=== PATIENT | male | born 1955 | race Caucasian/White ===

== ENCOUNTER 2020-01-31 13:15 | Outpatient (CLI) | payer OTHER, SELFPAY ==
--- NOTE | ~2020-01-31 | US_ITS ---
US venous doppler LE RT DATE: 01/31/2020 13:59 INDICATION: Calf bruising TECHNIQUE: Real-time and color flow imaging and Doppler analysis of the veins of the lower extremitie s COMPARISON: None FINDINGS: The greater saphenous vein is patent. There is spontaneous and phasic flow and normal augme ntation and color flow signal and normal compression of the deep veins of the left lower extremity. IMPRESSION: Negative examination; no evidence of deep venous thrombosis Reviewed, dictated and finalized at [facility]. Reviewed, dictated and finalized at [facility].
== END 2020-01-31 13:16 | disposition home or self-care (01) ==
LOC: ANHIMG 13:21
PROVIDERS: PCP Family Medicine; Visit Provider Orthopaedic Surgery
DX: M79.609 Pain in unspecified limb (principal)
CPT/HCPCS: 93971

== ENCOUNTER → 2020-10-23 14:10 | Outpatient (CLI) | payer OTHER, SELFPAY ==
--- NOTE | ~2020-10-23 | MR_ITS ---
EXAMINATION: MR lumbar spine wo/w con DATE: 10/23/2020 15:05 INDICATION: Lumbar radiculopathy TECHNIQUE: Magnetic resonance imaging (MRI) of the lumbar spine was performed without and with 15 mL Multihance intravenous contrast. Sequences included sagittal T2-weighted FSE, sagittal T2-weighted FS FSE, and sagittal and axial T1-weighted FSE. Postcontrast sequences included axial T2-weighted FSE, sagittal T1-weighted FSE, and axial and sagittal T1-weighted FS FSE. COMPARISON: None FINDINGS: 3 mm retrolisthesis L2 on L3 and L3 on L4, 2-3 mm anterolisthesis L4 on L5 and 4-5 mm retrolisthesis L5 on S1. Mild fibrovascular degenerative endplate changes along a few of the endplates. Otherwise no rmal marrow signal with no fracture or pathologic marrow replacing process. Moderate disc height los s at T10-T11 and T11-T12, mild disc height loss at L2-L3. Moderate disc height loss at L2-L3 and L4-L 5 and severe disc height loss at L5-S1. There are annular fissures at T11-T12 and at L2-L3 through L5 -S1. The conus medullaris terminates at L1. There is normal signal in the caudal spinal cord. No abno rmally enhancing lesions identified. T2 hyperintense nonenhancing bilateral renal cysts the largest p artially visualized on the left measuring at least 5.4 cm. There appear to be foci of susceptibility artifact along both sides of the L4 and L5 spinous processes with some scarring in the paravertebral soft tissues suggesting prior surgery. Correlate with surgical history. The following disc levels are specifically discussed: T12-L1: The disc does not extend beyond the endplate margin. There is no facet joint osteoarthritis. There is no neural foraminal stenosis. There is no central canal stenosis. L1-L2: The disc does not extend beyond the endplate margin. There is mild bilateral facet joint osteo arthritis. There is normal left neural foraminal stenosis. There is no central canal stenosis. L2-L3: Disc is bulging with annular fissure and central disc extrusion with disc material extending 1 .7 cm caudal to the level of the superior endplate of L3 and in maximal transaxial dimensions measuri ng 12 mm medial collateral and 6 mm AP. There is mild hypertrophy of the ligamentum flavum. There is mild bilateral facet joint osteoarthritis. There is moderate bilateral neural foraminal stenosis. The re is moderate to severe central canal stenosis with very small amount of CSF signal surrounding the centrally clustered nerve roots. L3-L4: Disc is bulging with annular fissure. There is hypertrophy of the ligamentum flavum. There is moderate bilateral facet joint osteoarthritis. There is moderate bilateral neural foraminal stenosis. There is moderate central canal stenosis. L4-L5: Disc is bulging with superimposed annular fissure and central disc extrusion which extends 5 m m cephalad to the level of the inferior endplate of L4. There is hypertrophy of the ligamentum flavum . There is severe bilateral facet joint osteoarthritis. There is moderate bilateral neural foraminal stenosis. There is severe central canal stenosis with no CSF signal surrounding the centrally cluster ed nerve roots which demonstrated taut appearance cephalad to the stenosis and a relatively lax appea coleltte caudal to the stenosis. L5-S1: Disc is mildly bulging with annular fissure and small left paracentral disc extrusion with sma ll amount of dysmotility extending up to 3 mm caudal to the level of the superior endplate of S1. The re is mild left and mild to moderate right facet joint osteoarthritis. There is moderate bilateral ne ural foraminal stenosis. There is no central canal stenosis. IMPRESSION: 1. Severe cervical spondylosis most notable for disc extrusions resulting in moderate to severe steno sis at L2-L3 and severe stenosis at L4-L5. Reviewed, dictated and finalized at location
[2020-10-23 14:37] LABS: Estimated Glomerular Filt Rate 56
== END ==
DX: M54.16 Radiculopathy, lumbar region (principal); M51.26 Other intervertebral disc displacement, lumbar region
CPT/HCPCS: 72158; A9577

== ENCOUNTER 2021-07-13 06:57 | Outpatient (CLI) | payer OTHER, SELFPAY ==
--- NOTE | ~2021-07-13 | XR_ITS ---
XR knee RT 3V DATE: 07/13/2021 07:21 INDICATION: Medial right knee pain. No recent injury. TECHNIQUE: [place] and weightbearing AP and lateral views COMPARISON: None FINDINGS: There is prominent medial compartment joint space narrowing and mild particular spurring. T here is mild periarticular spurring at the patellofemoral joint. No fracture or dislocation, periosteal reaction or bone destruction, radiopaque intra-articular loose body or chondrocalcinosis is detected. IMPRESSION: Osteoarthritis at patellofemoral and to a greater extent medial compartments Reviewed, dictated and finalized at [facility]. IMPRESSION: Osteoarthritis at patellofemoral and to a greater extent medial com partments
== END 2021-07-13 06:58 | disposition home or self-care (01) ==
PROVIDERS: PCP Internal Medicine; Visit Provider Orthopaedic Surgery
DX: M25.561 Pain in right knee (principal); M17.11 Unilateral primary osteoarthritis, right knee
CPT/HCPCS: 73562

== ENCOUNTER 2021-07-21 11:52 | Outpatient (CLI) | payer OTHER, SELFPAY ==
--- NOTE | ~2021-07-21 | XR_ITS ---
XR hand RT 2V, XR hand LT 2V 07/21/2021 12:20 (accession [id number]), 07/21/2021 12:21 (accession [id number]) Indication: Polyarthralgias Procedure: 2 views of each hand Comparison: No prior studies for comparison. Findings: There is moderate polyarticular osteoarthritis most advanced at the triscaphe joints, first CMC joint and the second and third MCP joints bilaterally. No acute fracture or traumatic malalignme nt. There are erosive changes at the right fourth DIP joint and the left second DIP joint.. No focal soft tissue abnormality. No foreign bodies. Impression: 1: Moderate polyarticular osteoarthritis with subtle bilateral erosive changes described above. Canno t exclude underlying inflammatory arthropathy. Reviewed, dictated and finalized at [facility]. Impression: 1: Moderate polyarticular osteoarthritis with subtle bilateral erosive changes described above. Cannot exclude underlying inflammatory arthropathy. Impression: 1: Moderate polyarticular osteoarthritis with subtle bilateral erosive changes described above. Cannot exclude underlying inflammatory arthropathy.
--- NOTE | ~2021-07-21 | XR_ITS ---
XR foot RT 2V, XR foot LT 2V 07/21/2021 12:21 Indication: Polyarthralgias Procedure: 2 views each foot Comparison: No prior studies for comparison. Findings: There is moderate symmetric osteoarthritis of the first metatarsal-phalangeal joints. No fr acture or traumatic malalignment. No erosive changes. Lisfranc joint intact. No foreign bodies. No fo saul soft tissue abnormality. Impression: 1: Moderate symmetric osteoarthritis of the first MTP joints bilaterally. Reviewed, dictated and finalized at [facility]. Impression: 1: Moderate symmetric osteoarthritis of the first MTP joints bilaterally. Impression: 1: Moderate symmetric osteoarthritis of the first MTP joints bilaterally.
--- NOTE | ~2021-07-21 | XR_ITS ---
XR sacroiliac joints min 3V 07/21/2021 12:20 Indication: Polyarthralgias Procedure: 3 views of the sacroiliac joints Comparison: No prior studies for comparison. Findings: There is moderate lower lumbar spondylosis. Sacroiliac joints are symmetric. Sacral foramen are symmetric. No significant degenerative change, erosive change or ankylosis. There is a small bon e island in the left femur proximally. Impression: 1: Lower lumbar spondylosis. Reviewed, dictated and finalized at [facility]. Impression: 1: Lower lumbar spondylosis.
== END 2021-07-21 11:53 | disposition home or self-care (01) ==
PROVIDERS: PCP Internal Medicine; Visit Provider Physician Assistant
DX: M25.50 Pain in unspecified joint (principal); M19.071 Primary osteoarthritis, right ankle and foot; M19.072 Primary osteoarthritis, left ankle and foot; M19.041 Primary osteoarthritis, right hand; M19.042 Primary osteoarthritis, left hand; M47.896 Other spondylosis, lumbar region
CPT/HCPCS: 72202; 73120; 73620